=== PATIENT | male | born 2000 | race Caucasian/White ===

== ENCOUNTER 2021-10-27 00:24 | Emergency (ER) | payer OTHER, BC ==
[2021-10-27] MEDS ORDERED: Lidocaine 2% 20 ML MDV INFILT ONE (00:25)
== END 2021-10-27 01:30 | disposition home or self-care (01) ==
LOC: FB.ED 00:24
DX: S61.011A Laceration without foreign body of right thumb without damage to nail, initial encounter (principal); Z88.0 Allergy status to penicillin; W26.8XXA Contact with other sharp object(s), not elsewhere classified, initial encounter
CPT/HCPCS: 12001; 99282-25

== ENCOUNTER 2022-03-16 08:24 | Emergency (ER) | payer BC, OTHER ==
[2022-03-16 09:25] LABS: ESTIMATED GFR 128 mL/min (>60)
== END 2022-03-16 10:20 | disposition home or self-care (01) ==
LOC: FB.ED 08:24
DX: K29.70 Gastritis, unspecified, without bleeding (principal); K21.00 Gastro-esophageal reflux disease with esophagitis, without bleeding; E87.6 Hypokalemia; R79.89 Other specified abnormal findings of blood chemistry
CPT/HCPCS: 36415; 80053; 85025; 85610; 86140; 87651-QW; 99282; 99283

== ENCOUNTER 2022-06-18 18:38 | Emergency (ER) | payer BC ==
[2022-06-18 19:48] LABS: ESTIMATED GFR 123 mL/min (>60)
== END 2022-06-18 20:23 | disposition home or self-care (01) ==
LOC: FB.ED 18:38
DX: T43.601A Poisoning by unspecified psychostimulants, accidental (unintentional), initial encounter (principal); R00.2 Palpitations; Z88.0 Allergy status to penicillin
CPT/HCPCS: 36415; 80048; 80307; 85025; 99284